=== PATIENT | male | born 1960 | race Caucasian/White ===

== ENCOUNTER → 2018-04-03 | Outpatient (CLI) | payer OTHER | END | disposition home or self-care (01) | LOC: CFH 07:54 | PROVIDERS: ATTEND Registered Nurse Registered Nurse First Assistant | DX: M51.16 Intervertebral disc disorders with radiculopathy, lumbar region (principal); M48.061 Spinal stenosis, lumbar region without neurogenic claudication; M51.37 Other intervertebral disc degeneration, lumbosacral region; M48.07 Spinal stenosis, lumbosacral region; M51.27 Other intervertebral disc displacement, lumbosacral region; M51.24 Other intervertebral disc displacement, thoracic region; M43.16 Spondylolisthesis, lumbar region | CPT/HCPCS: 72110; 72148 ==

== ENCOUNTER → 2018-05-22 | Outpatient (CLI) | payer OTHER ==
[~2018-05-22] MED LIST: IBUP-1484 PO
[2018-05-22 10:15] LABS: BASOPHILS # (AUTO) 0.02 x10^3/uL (0-0.1); BASOPHILS % (AUTO) 0 % (0-1); EOSINOPHILS # (AUTO) 0.14 x10^3/uL (0-0.4); EOSINOPHILS % (AUTO) 3 % (1-7); LYMPHOCYTES # (AUTO) 1.23 x10^3/uL (1-3.4); LYMPHOCYTES % (AUTO) 31 % (22-44); MD NO; MEAN CORPUSCULAR HEMOGLOBIN 31.6 pg (27.5-34.5); MEAN CORPUSCULAR HGB CONC 34.7 g/dL (33.2-36.2); MEAN CORPUSCULAR VOLUME 90.9 fL (81-97); MEAN PLATELET VOLUME 7.7 fL (7.4-10.4); MONOCYTES # (AUTO) 0.29 x10^3/uL (0.2-0.8); MONOCYTES % (AUTO) 7 % (2-9); NEUTROPHILS # (AUTO) 2.34 x10^3/uL (1.8-6.8); NEUTROPHILS % (AUTO) 58 % (42-75); PLATELET COUNT 219 x10^3/uL (130-400); RED BLOOD COUNT 4.44 x10^6/uL (4.38-5.82); RED CELL DISTRIBUTION WIDTH 12.4 % (9.4-14.8)
[2018-05-22 10:23] LABS: ALANINE AMINOTRANSFERASE 35 U/L (12-78); ALBUMIN 4.2 g/dL (3.4-5.0); ANION GAP 7 mmol/L (5-15); CALCIUM 8.6 mg/dL (8.5-10.1); CHLORIDE 107 mmol/L (98-107); CREATININE 0.83 mg/dL (0.7-1.3)
[2018-05-22 10:32] LABS: ALKALINE PHOSPHATASE 51 U/L (45-117); BILIRUBIN,TOTAL 0.4 mg/dL (0.2-1.0); CHOL/HDL RATIO 5.6; CHOLESTEROL, TOTAL 228 mg/dL (140-239); FREE T4 (FREE THYROXINE) 0.92 ng/dL (0.76-1.46); HDL CHOL % 18 % (26-37); HDL CHOLESTEROL (DIRECT) 41 mg/dL (40-60); LDL CHOLESTEROL,CALCULATED 164 mg/dL (54-169); TOTAL PROTEIN 7.3 g/dL (6.4-8.2); TRIGLYCERIDES 117 mg/dL (50-200); VLDL CHOLESTEROL 23 mg/dL (0-25)
== END | disposition home or self-care (01) ==
LOC: LAB 10:01
PROVIDERS: ATTEND Internal Medicine Hospice and Palliative Medicine
DX: Z00.00 Encounter for general adult medical examination without abnormal findings (principal)
CPT/HCPCS: 36415; 80053; 80061; 84439; 84443; 85025

== ENCOUNTER 2018-07-02 11:54 | Outpatient (CLI) | payer OTHER ==
[2018-07-02] MEDS ORDERED: will bring a list (12:37)
[2018-07-02 13:02] LABS: BASOPHILS # (AUTO) 0.01 x10^3/uL (0-0.1); BASOPHILS % (AUTO) 0 % (0-1); EOSINOPHILS # (AUTO) 0.14 x10^3/uL (0-0.4); EOSINOPHILS % (AUTO) 4 % (1-7); LYMPHOCYTES # (AUTO) 1.33 x10^3/uL (1-3.4); LYMPHOCYTES % (AUTO) 33 % (22-44); MD NO; MEAN CORPUSCULAR HEMOGLOBIN 31.3 pg (27.5-34.5); MEAN CORPUSCULAR HGB CONC 33.9 g/dL (33.2-36.2); MEAN CORPUSCULAR VOLUME 92.2 fL (81-97); MEAN PLATELET VOLUME 7.4 fL (7.4-10.4); MONOCYTES # (AUTO) 0.22 x10^3/uL (0.2-0.8); MONOCYTES % (AUTO) 5 % (2-9); NEUTROPHILS # (AUTO) 2.28 x10^3/uL (1.8-6.8); NEUTROPHILS % (AUTO) 57 % (42-75); PLATELET COUNT 217 x10^3/uL (130-400); RED CELL DISTRIBUTION WIDTH 12.4 % (9.4-14.8)
[2018-07-02 13:15] LABS: MICROSCOPIC NOT IND
[2018-07-02 13:16] LABS: ALBUMIN 4.2 g/dL (3.4-5.0); ANION GAP 7 mmol/L (5-15); CALCIUM 8.8 mg/dL (8.5-10.1); CHLORIDE 105 mmol/L (98-107)
[2018-07-02 13:19] LABS: ALANINE AMINOTRANSFERASE 37 U/L (12-78); ALKALINE PHOSPHATASE 50 U/L (45-117); BILIRUBIN,TOTAL 0.8 mg/dL (0.2-1.0); CREATININE 0.83 mg/dL (0.7-1.3); TOTAL PROTEIN 7.4 g/dL (6.4-8.2)
[2018-07-02 13:26] LABS: INTERNATIONAL NORMALIZED RATIO 0.97 (0.93-1.1); PROTHROMBIN TIME 10.2 Seconds (9.6-11.5)
[2018-07-02 13:31] LABS: CULTURE INDICATED? NO
== END 2018-07-02 23:59 | disposition home or self-care (01) ==
LOC: STAR 11:54
PROVIDERS: ATTEND Neurological Surgery
DX: Z01.818 Encounter for other preprocedural examination (principal); M43.10 Spondylolisthesis, site unspecified
CPT/HCPCS: 36415; 80053; 81003; 85025; 85610; 85730; 93005

== ENCOUNTER 2018-07-07 05:12 | Inpatient (IN) | payer OTHER ==
[2018-07-02 12:26] VITALS: BP 141/81
[~2018-07-07] VITALS: Ht 182.9 cm; Wt 94.2 kg
[~2018-07-07 05:12] MED LIST changes: +will bring a list
[2018-07-07] MEDS ORDERED: LACTATED RINGERS 1,000 ML IV SCH (06:07)
[2018-07-07] MEDS ORDERED: GABA300C10 PO (06:10)
[2018-07-07] MEDS ORDERED: IRBE150T25 PO (06:10)
[2018-07-07] MEDS ORDERED: TRAM1TAB56 PO (06:10)
[2018-07-07] MEDS ORDERED: TIZA2TAB PO (06:10)
[2018-07-07] MEDS ORDERED: EPINEPHRINE 1 MG/ML, 1ML ONE (06:16)
[2018-07-07] MEDS ORDERED: VANCOMYCIN 1,000 MG ONE (06:16)
[2018-07-07] MEDS ORDERED: THROMBIN 5,000 UNIT VIAL TP ONE (06:16)
[2018-07-07] MEDS ORDERED: BACITRACIN 50,000 UNIT ONE (06:16)
[2018-07-07] MEDS ORDERED: BUPIVACAINE/PF 0.25% ONE (06:16)
[2018-07-07] MEDS ORDERED: BUPIVACAINE/EPI 0.5% 1:200K ONE (06:16)
[2018-07-07] MEDS ORDERED: MIDAZOLAM 1 MG/ML, 2ML ONE (06:40)
[2018-07-07] MEDS ORDERED: FENTANYL PF 250 MCG/5ML ONE (06:40)
[2018-07-07] MEDS ORDERED: KETOROLAC 30 MG/1 ML IV PRN (08:00)
[2018-07-07] MEDS ORDERED: DIAZEPAM 5 MG/ML, 2ML IVPush PRN (08:00)
[2018-07-07] MEDS ORDERED: OXYcodone 5 MG/5 ML ORAL.SOL UDC PO PRN (08:00)
[2018-07-07] MEDS ORDERED: ALBUTEROL SULFATE 2.5 MG/3 ML NPPB PRN (08:00)
[2018-07-07] MEDS ORDERED: PROMETHAZINE 25 MG/ML, 1ML IV PRN (08:00)
[2018-07-07] MEDS ORDERED: MEPERIDINE/PF 25MG/0.5ML IVPush PRN (08:00)
[2018-07-07] MEDS ORDERED: LABETALOL 5MG/ML, 20ML IV PRN (08:00)
[2018-07-07] MEDS ORDERED: ACETAMINOPHEN 325 MG TABLET PO PRN (08:00)
[2018-07-07] MEDS ORDERED: FENTANYL PF 100 MCG/2ML IV PRN (08:00)
[2018-07-07] MEDS ORDERED: hydrALAzine 20 MG/ML, 1ML IV PRN (08:00)
[2018-07-07] MEDS ORDERED: HYDROmorphone PCA 30 MG/30 ML IV PRN (10:00)
[2018-07-07] MEDS ORDERED: HYDROmorphone 2 MG/ML, 1ML ONE (10:18)
[2018-07-07] MEDS ORDERED: FENTANYL PF 100 MCG/2ML ONE (10:18)
[2018-07-07] MEDS ORDERED: OXYcodone 5 MG/5 ML ORAL.SOL UDC ONE (10:19)
[2018-07-07] MEDS ORDERED: GLYCOPYRROLATE 0.2MG/1ML, 5ML ONE (10:40)
[2018-07-07] MEDS ORDERED: SUCCINYLCHOLINE 20 MG/ML, 10ML ONE (10:40)
[2018-07-07] MEDS: HYDROmorphone 2 MG/ML, 1ML IVPush PRN ×2 (10:40→10:45)
[2018-07-07] MEDS ORDERED: PROPOFOL 10 MG/ML, 20ML ONE (10:40)
[2018-07-07] MEDS ORDERED: NEOSTIGMINE 1 MG/ML, 10ML ONE (10:40)
[2018-07-07] MEDS ORDERED: DEXAMETHASONE 4 MG/ML, 1ML ONE (10:40)
[2018-07-07] MEDS ORDERED: CEFAZOLIN 1,000 MG ONE (10:40)
[2018-07-07] MEDS ORDERED: ONDANSETRON 2MG/ML, 2ML ONE (10:40)
[2018-07-07] MEDS ORDERED: ROCURONIUM 10MG/ML,5ML ONE (10:40)
[2018-07-07] MEDS ORDERED: OXYcodone/APAP 10/325MG TABLET PO PRN (12:00)
[2018-07-07] MEDS ORDERED: morphine SULFATE 10 MG/ML, 1ML IV PRN (12:00)
[2018-07-07] MEDS ORDERED: ONDANSETRON 2MG/ML, 2ML IV PRN (12:00)
[2018-07-07] MEDS ORDERED: MAGNESIUM HYDROXIDE 8%, 30ML UDC PO PRN (12:00)
[2018-07-07] MEDS ORDERED: BISACODYL 10 MG SUPP PR PRN (12:00)
[2018-07-07] MEDS: NS + 20MEQ KCL 1,000 ML IV SCH ×2 (12:48→23:32)
[2018-07-07] MEDS: DIPHENHYDRAMINE 50 MG/ML, 1ML IVPush PRN ×2 (13:36→23:05)
[2018-07-07] MEDS ORDERED: EPHEDRINE 50 MG/ML, 1ML ONE (15:03)
[2018-07-07] MEDS ORDERED: PROPOFOL 10 MG/ML, 50ML ONE (15:03)
[2018-07-07 15:17] VITALS: BP 145/83
[2018-07-07] MEDS: CEFAZOLIN PMX 1GM/50ML 50 ML IVPB SCH ×2 (15:36→23:32)
[2018-07-07 19:58] VITALS: BP 152/79
[2018-07-07] MEDS: GABAPENTIN 300 MG CAPSULE PO SCH (21:16)
[2018-07-07] MEDS: IRBESARTAN 150 MG TABLET PO SCH (21:16)
[2018-07-08 00:22] VITALS: BP 120/71
[2018-07-08 03:55] VITALS: BP 116/69
[2018-07-08 05:45] LABS: BASOPHILS # (AUTO) 0.01 x10^3/uL (0-0.1); BASOPHILS % (AUTO) 0 % (0-1); EOSINOPHILS % (AUTO) 0 % (1-7); LYMPHOCYTES # (AUTO) 0.78 x10^3/uL (1-3.4); LYMPHOCYTES % (AUTO) 10 % (22-44); MD NO; MEAN CORPUSCULAR HEMOGLOBIN 31.7 pg (27.5-34.5); MEAN CORPUSCULAR HGB CONC 34.1 g/dL (33.2-36.2); MEAN PLATELET VOLUME 7.7 fL (7.4-10.4); MONOCYTES # (AUTO) 0.56 x10^3/uL (0.2-0.8); MONOCYTES % (AUTO) 7 % (2-9); NEUTROPHILS # (AUTO) 6.29 x10^3/uL (1.8-6.8); NEUTROPHILS % (AUTO) 82 % (42-75); PLATELET COUNT 197 x10^3/uL (130-400); RED BLOOD COUNT 3.53 x10^6/uL (4.38-5.82); RED CELL DISTRIBUTION WIDTH 12.7 % (9.4-14.8)
[2018-07-08 05:48] LABS: ANION GAP 5 mmol/L (5-15); CALCIUM 7.6 mg/dL (8.5-10.1); CHLORIDE 109 mmol/L (98-107); CREATININE 0.93 mg/dL (0.7-1.3)
[2018-07-08] MEDS: NS + 20MEQ KCL 1,000 ML IV SCH ×2 (08:00→19:30)
[2018-07-08 08:16] VITALS: BP 120/78
[2018-07-08] MEDS: DIPHENHYDRAMINE 50 MG/ML, 1ML IVPush PRN ×2 (08:30→18:27)
[2018-07-08] MEDS: SENNA/DOCUSATE TABLET PO SCH (08:31)
[2018-07-08] MEDS: OXYcodone/APAP 10/325MG TABLET PO PRN ×2 (08:44→14:04)
[2018-07-08 13:41] VITALS: BP 142/75
[2018-07-08] MEDS: HYDROcodone/APAP 10/325 MG TABLET PO PRN ×2 (18:24→22:30)
[2018-07-08 21:07] VITALS: BP 102/63
[2018-07-08] MEDS: GABAPENTIN 300 MG CAPSULE PO SCH (21:12)
[2018-07-08] MEDS: IRBESARTAN 150 MG TABLET PO SCH (21:13)
[2018-07-08] MEDS: TIZANIDINE 2MG TABLET PO PRN (21:16)
[2018-07-09 02:04] VITALS: BP 114/70
[2018-07-09] MEDS: HYDROcodone/APAP 10/325 MG TABLET PO PRN ×3 (02:41→10:29)
[2018-07-09] MEDS: DIPHENHYDRAMINE 50 MG/ML, 1ML IVPush PRN (02:41)
[2018-07-09] MEDS: DIPHENHYDRAMINE 25 MG CAPSULE PO PRN ×2 (02:48→10:29)
[2018-07-09] MEDS: TIZANIDINE 2MG TABLET PO PRN ×2 (03:10→09:16)
[2018-07-09] MEDS: NS + 20MEQ KCL 1,000 ML IV SCH (05:30)
[2018-07-09 06:00] LABS: BASOPHILS # (AUTO) 0.01 x10^3/uL (0-0.1); BASOPHILS % (AUTO) 0 % (0-1); EOSINOPHILS # (AUTO) 0.08 x10^3/uL (0-0.4); EOSINOPHILS % (AUTO) 1 % (1-7); LYMPHOCYTES % (AUTO) 17 % (22-44); MD NO; MEAN CORPUSCULAR HEMOGLOBIN 30.5 pg (27.5-34.5); MEAN CORPUSCULAR VOLUME 92.5 fL (81-97); MEAN PLATELET VOLUME 7.5 fL (7.4-10.4); MONOCYTES # (AUTO) 0.61 x10^3/uL (0.2-0.8); MONOCYTES % (AUTO) 8 % (2-9); NEUTROPHILS # (AUTO) 5.34 x10^3/uL (1.8-6.8); NEUTROPHILS % (AUTO) 74 % (42-75); PLATELET COUNT 175 x10^3/uL (130-400); RED BLOOD COUNT 3.31 x10^6/uL (4.38-5.82); RED CELL DISTRIBUTION WIDTH 12.3 % (9.4-14.8)
[2018-07-09] MEDS ORDERED: HYDR-3307 PO ×2 (08:54→09:50)
[2018-07-09] MEDS ORDERED: TIZA2TAB PO (08:54)
[2018-07-09] MEDS: SENNA/DOCUSATE TABLET PO SCH (09:16)
[2018-07-09 09:20] VITALS: BP 133/80
[2018-07-09] MEDS ORDERED: TIZA2CAP PO (09:52)
[2018-07-09 13:02] VITALS: BP 103/65
== END 2018-07-09 14:14 | disposition home or self-care (01) | DRG 454 ==
LOC: ORIP 05:12 → 4NOR 11:29 → DCLOUNGE 07-09 14:01
PROVIDERS: ADMIT Neurological Surgery; ATTEND Neurological Surgery
PROC: 0SG0071 Fusion of Lumbar Vertebral Joint with Autologous Tissue Substitute, Posterior Approach, Posterior Column, Open Approach (ICD-10-PCS; 2018-07-07)
PROC: 0SG30AJ Fusion of Lumbosacral Joint with Interbody Fusion Device, Posterior Approach, Anterior Column, Open Approach (ICD-10-PCS; 2018-07-07)
PROC: 0SG3071 Fusion of Lumbosacral Joint with Autologous Tissue Substitute, Posterior Approach, Posterior Column, Open Approach (ICD-10-PCS; 2018-07-07)
PROC: 01NB0ZZ Release Lumbar Nerve, Open Approach (ICD-10-PCS; 2018-07-07)
PROC: 01NR0ZZ Release Sacral Nerve, Open Approach (ICD-10-PCS; 2018-07-07)
PROC: 00UT0KZ Supplement Spinal Meninges with Nonautologous Tissue Substitute, Open Approach (ICD-10-PCS; 2018-07-07)
PROC: 4A11X4G Monitoring of Peripheral Nervous Electrical Activity, Intraoperative, External Approach (ICD-10-PCS; 2018-07-07)
PROC: 0SG00AJ Fusion of Lumbar Vertebral Joint with Interbody Fusion Device, Posterior Approach, Anterior Column, Open Approach (ICD-10-PCS; principal; 2018-07-07 07:00)
DX: M48.07 Spinal stenosis, lumbosacral region (principal); G97.41 Accidental puncture or laceration of dura during a procedure; M51.17 Intervertebral disc disorders with radiculopathy, lumbosacral region; Z87.820 Personal history of traumatic brain injury; M48.061 Spinal stenosis, lumbar region without neurogenic claudication; M43.17 Spondylolisthesis, lumbosacral region; I10 Essential (primary) hypertension; M43.16 Spondylolisthesis, lumbar region; Y83.8 Other surgical procedures as the cause of abnormal reaction of the patient, or of later complication, without mention of misadventure at the time of the procedure; Y92.234 Operating room of hospital as the place of occurrence of the external cause
CPT/HCPCS: 36415; 72100; 80048; 85025; 86850; 86900; 95938; 95941; C1713; C1776; G0378; J0171; J0690; J1100; J1170; J2250; J2270; J2405; J2704; J2710; J3010; J3370; J3480; J3490; C1762; C1781; J0330; J1200; J7120; Q0163

== ENCOUNTER → 2018-12-08 | Outpatient (CLI) | payer OTHER ==
[~2018-12-08] MED LIST changes: +GABA300C10 PO; +HYDR-36 PO; -IBUP-1484 PO; +IBUP-1902 PO; +IRBE150T25 PO; +TIZA2CAP PO; +TIZA2TAB2 PO; +TRAM1TAB56 PO
== END | disposition home or self-care (01) ==
LOC: RAD 12:47
PROVIDERS: ATTEND Neurological Surgery
DX: M48.061 Spinal stenosis, lumbar region without neurogenic claudication (principal); Z82.5 Family history of asthma and other chronic lower respiratory diseases
CPT/HCPCS: 72110